=== PATIENT | female | born 1970 | race Caucasian/White ===

== ENCOUNTER → 2018-01-25 07:01 | Outpatient (CLI) | payer OTHER, SELFPAY ==
[2018-01-25 07:45] LABS: Free T3 2.7 pg/mL (2.18-3.98); T4 Free Direct 1.19 ng/dL (0.76-1.46); Thyroid Stim Hormone (TSH) 2.05 uIU/mL (0.358-3.74)
== END ==
PROVIDERS: Family Provider Family Medicine; PCP Family Medicine; Visit Provider Family Medicine
DX: E03.9 Hypothyroidism, unspecified (principal)
CPT/HCPCS: 36415; 84439; 84443; 84481

== ENCOUNTER → 2018-07-08 15:45 | Outpatient (CLI) | payer OTHER, SELFPAY | PROVIDERS: Family Provider Family Medicine; PCP Family Medicine; Referring Provider Otolaryngology Otolaryngology/Facial Plastic Surgery; Visit Provider Otolaryngology Otolaryngology/Facial Plastic Surgery | DX: J32.9 Chronic sinusitis, unspecified (principal) | CPT/HCPCS: 87070; 87205 ==

== ENCOUNTER → 2018-08-21 15:46 | Outpatient (CLI) | payer OTHER, SELFPAY ==
[2017-12-07 14:04] VITALS: BMI 28.9
--- NOTE | 2018-08-21 15:49 | BI_ITS ---
MAMMOGRAPHY - BILATERAL SCREENING REASON FOR EXAM: Female, 48 years old. Routine annual screening examination. PERTINENT HISTORY: Non-contributory. Remote right stereotactic breast biopsy. TECHNIQUE: Digital bilateral breast andreas (3D mammographic acquisition) in the CC and MLO projections. 2-D mediolateral oblique (MLO) and craniocaudad (CC) views of both breasts were obtained. CAD: Full Field Digital Mammography with Computer Added Detection was performed. COMPARISON: Comparison is made with prior study dated August 20, 2017 and June 08, 2016. FINDINGS: Breast Composition: The breasts are extremely dense, which lowers the sensitivity of mammography. There are no dominant masses or suspicious calcifications. A tissue clip marker is once again seen in the superior midportion of the right breast from prior biopsy. Stable appearance of the bilateral axillary lymph nodes. No other significant abnormalities are identified. There has been no significant change since the prior study. BI/SCREENING MAMM (CAD), BILAT IMPRESSION: Stable bilateral screening mammogram. Yearly follow-up mammogram recommended. (A) ASSESSMENT CATEGORY: BIRADS Category 2: Benign. A letter regarding these results will be sent to the patient by the facility within 30 days. Approximately 10% of breast cancers are not detected by mammography. A normal mammogram should not delay biopsy of a clinically suspicious abnormality. [id number] Electronically Signed: Trent Hernandez MD at 14:46 EST Tel [phone], Service support ,
== END ==
PROVIDERS: Family Provider Family Medicine; PCP Family Medicine; Visit Provider Obstetrics & Gynecology
DX: Z12.31 Encounter for screening mammogram for malignant neoplasm of breast (principal)
CPT/HCPCS: 77063; 77067

== ENCOUNTER → 2018-08-22 08:35 | Outpatient (CLI) | payer OTHER, SELFPAY ==
[2017-12-07 14:04] VITALS: BMI 28.9
[2018-08-22 10:23] LABS: T4 Free Direct 0.86 ng/dL (0.76-1.46)
[2018-08-22 10:50] LABS: T3 Total - Triiodothyronine 2.33 ng/mL (0.6-1.81)
[2018-08-23 12:53] LABS: Thyroid Peroxidase AB 11 IU/mL (0-34)
== END ==
PROVIDERS: Family Provider Family Medicine; PCP Family Medicine; Referring Provider Family Medicine; Visit Provider Family Medicine
DX: E03.9 Hypothyroidism, unspecified (principal); R00.2 Palpitations
CPT/HCPCS: 36415; 84439; 84443; 84480; 86376

== ENCOUNTER 2020-02-06 12:53 | Emergency (ER) | payer OTHER, SELFPAY ==
[2020-02-06 12:54] VITALS: BP 128/89; PULSE 111; RESP 20; TEMP 37.4; O2SAT 96; BMI 28.4
--- NOTE | 2020-02-06 13:39 | EKG12_ITS ---
Test Reason : Blood Pressure : / mmHG Vent. Rate : 083 BPM Atrial Rate : 083 BPM P-R Int : 136 ms QRS Dur : 074 ms QT Int : 356 ms P-R-T Axes : 042 -20 001 degrees QTc Int : 418 ms Normal sinus rhythm Cannot rule out Anterior infarct , age undetermined Abnormal ECG Confirmed by SHARITA MARQUEZ, GUI ([id number]), scientific publications editor KATHY TAYLOR ([id number]) on 02/09/2020 1:28:10 PM Referred By: ISI Confirmed By:GUI SHERIFF MD
[2020-02-06 14:12] LABS: Absolute Lymphocyte Count 2.09 X10^3/uL (0.83-4.51); Absolute Neutrophil Count 5.2 X10^3/uL (2.0-7.7); Basophil# 0.04 X10^3/uL; Basophil% 0.5 % (0-1); Eosinophil# 0.12 X10^3/uL; Eosinophils% 1.5 % (0-5); Hemoglobin 15.2 g/dL (12.0-15.0); Lymphocyte # 2.09 X10^3/ul (4.0); Lymphocyte % 25.4 % (19-41); Mean Corpuscular Hgb 29.8 pg (27.0-32.0); Mean Corpuscular Volume 90.2 fL (81-99); Mean Platelet Vol. 9.6 fl (6.2-12.0); Monocyte# 0.81 X10^3/uL; Monocyte% 9.8 % (0-10); NRBC Flagged by Analyzer 0 % (0-5); Neutrophil # 5.16 X10^3/uL (2.7-7.7); Neutrophil % 62.7 % (47-70); Platelet Count 301 K/mm3 (150-450); RBC Distribution Width CV 12.1 % (11.6-14.6); RBC Distribution Width SD 39.8 fl (35.1-43.9); White Blood Count 8.2 K/mm3 (4.4-11.0)
--- NOTE | 2020-02-06 14:16 | ED.VIS.GEN ---
History of Present Illness Chief Complaint: Back Informant: Patient Onset: Days Context: Gradual Onset Timing: Continuous Narrative: Patient is a 49-year-old female presented with back pain. She is also had fever in the evenings past few days. Patient has associated chills but denies any other symptoms such as cough, upper respiratory symptoms, urinary symptoms, abdominal pain, nausea or vomiting. She is alternating Tylenol Motrin for her symptoms. Her fevers been as high as 101. Patient states she has intermittent pain in a bandlike distribution over her mid back that is equal on both sides as well as a constant pain in her sacral area. She states is more like a pressure. She denies any perineal numbness, incontinence, leg weakness, paresthesias or rash. She denies any history of IV drug use or cancer. She denies any trauma or falls. She denies any other complaints at this time. Past Medical History - Allergies and Home Meds Allergies/Adverse Reactions: Allergies No Known Allergies Allergy (Verified 02/06/20 12:57) Primary Care Physician: Ellie James DO [Primary Care Provider] - Past Medical History: - - Asthma, thyroid dysfunction Surgical History: - - Partial thyroidectomy. section. Smoking Status: Never smoker - Family History Maternal Family History: Reports: Hypertension Paternal Family History: Reports: Diabetes, Heart Disease Review of Systems General: Reports: Chills, Fever. Denies: Sweats Eyes: Denies: Visual changes - bilaterally, Diplopia ENT: Denies: Rhinorrhea, Sore throat Cardiovascular: Denies: Chest pain, Palpitations Respiratory: Denies: Dyspnea, Cough, Dyspnea on exertion Gastrointestinal: Denies: Abdominal pain, Nausea, Vomiting, Diarrhea, Melena, Hematochezia Genitourinary: Denies: Dysuria, Hematuria, Frequency Musculoskeletal: Reports: Back pain. Denies: Myalgias, Swelling, Extremity Pain Skin: Denies: Rash, Wounds Neurological: Denies: Headache, Weakness, Numbness Physical Exam Vital Signs/Narrative: Vital Signs Temp Pulse Resp BP Pulse Ox 02/06/20 12:54 99.4 F H 111 H 20 H 128/89 H 96 Inital Vital Signs reviewed: Yes General: Well nourished, Well developed, No Acute Distress Head: Normocephalic, Atraumatic Eyes: Perrl, EOMI ENT: Moist mucous membranes, No rhinorrhea Neck: Supple, Nontender Cardiovascular: Regular rhythm, No murmurs, Tachycardia Respiratory: No distress, CTA bilaterally, Chest nontender Abdomen: Soft, Nontender, Nondistended, Normal bowel sounds. Negative for: Guarding, Rebound tenderness Back: Nontender, Normal Inspection, - - No palpable tenderness. No step-off sign. Patient's area of tenderness is diffusely over the sacral area as well as bandlike distribution of discomfort thoracolumbar junction with no pinpoint midline tenderness. Pain is not reproducible with palpation.. Negative for: CVA tenderness, Spinal tenderness Extremities: Nontender, No edema Skin: Normal color, No rash Neurological: Alert, Oriented x3, Cranial nerves II-XII grossly intact, Normal Strength, Normal Sensation, Normal Gait. Negative for: Parasthesia, Weakness Psychological: Normal affect, Normal Mood Diagnostic/Tx/Re-eval Chest X-Ray - ED: 1 View Clinical Impression(s) from Imaging Studies Chest X-Ray 02/06/20 14:30 IMPRESSION: Normal x-ray examination of the chest. Electronically Signed: Trent Mary, at 14:56 EDT , Service support , Laboratory Data 02/06/20 02/06/20 02/06/20 13:55 14:00 14:00 WBC 8.2 RBC 5.10 Hgb 15.2 H Hct 46.0 MCV 90.2 MCH 29.8 MCHC 33.0 RDW Std Deviation 39.8 RDW Coeff of Felicitas 12.1 Plt Count 301 MPV 9.6 Immature Gran % (Auto) 0.100 Neut % (Auto) 62.7 Lymph % (Auto) 25.4 [place] % (Auto) 9.8 Eos % (Auto) 1.5 Baso % (Auto) 0.5 Absolute Neuts (auto) 5.2 Absolute Lymphs (auto) 2.09 Nucleated RBC % 0 PT INR APTT Sodium 138 Potassium 3.6 Chloride 105 Carbon Dioxide 29.0 Anion Gap 4 L BUN 15 Creatinine 0.76 Estim Creat Clear Calc 65.73 Est GFR (MDRD) Af Amer 104 Est GFR (MDRD) Non-Af 86 BUN/Creatinine Ratio 19.7 Glucose 95 Lactic Acid Calcium 9.2 Total Bilirubin 0.30 AST 13 L ALT 36 Alkaline Phosphatase 81 Total Creatine Kinase 93 Total Protein 8.4 H Albumin 4.3 Globulin 4.1 Albumin/Globulin Ratio 1.0 Urine Color Urine Clarity Urine pH Ur Specific [place] Urine Protein Urine Glucose (UA) Urine Ketones Urine Occult Blood Urine Nitrite Urine Bilirubin Urine Urobilinogen Ur Leukocyte Esterase Urine RBC Urine WBC Ur Squamous Epith Cells Urine Bacteria Urine Mucus COVID-19 (LAURI) Negative 02/06/20 02/06/20 02/06/20 14:00 14:00 14:20 WBC RBC Hgb Hct MCV MCH MCHC RDW Std Deviation RDW Coeff of Felicitas Plt Count MPV Immature Gran % (Auto) Neut % (Auto) Lymph % (Auto) [place] % (Auto) Eos % (Auto) Baso % (Auto) Absolute Neuts (auto) Absolute Lymphs (auto) Nucleated RBC % PT 12.2 INR 1.0 APTT 29.7 Sodium Potassium Chloride Carbon Dioxide Anion Gap BUN Creatinine Estim Creat Clear Calc Est GFR (MDRD) Af Amer Est GFR (MDRD) Non-Af BUN/Creatinine Ratio Glucose Lactic Acid 0.9 Calcium Total Bilirubin AST ALT Alkaline Phosphatase Total Creatine Kinase Total Protein Albumin Globulin Albumin/Globulin Ratio Urine Color Yellow Urine Clarity Clear Urine pH 7.0 Ur Specific [place] 1.010 Urine Protein Negative Urine Glucose (UA) Normal Urine Ketones Negative Urine Occult Blood 10 H Urine Nitrite Negative Urine Bilirubin Negative Urine Urobilinogen Normal Ur Leukocyte Esterase Negative Urine RBC 0 SEEN Urine WBC 0 SEEN Ur Squamous Epith Cells 0 SEEN Urine Bacteria 0 SEEN Urine Mucus 0 SEEN COVID-19 (LAURI) - Rhythm Strip Rhythm Strip: Sinus Rhythm Rate: 83 Ectopy: None - EKG Initial EKG Interpretation: Sinus Rhythm, - - Normal sinus rhythm at a rate of 83 Normal axis Normal intervals Normal ST segments - Medical Decision Making Patient is evaluated for back pain and fever. She appears nontoxic in no acute distress. Vital signs are significant for mild tachycardia and low-grade temperature. She is well-appearing. Her back pain is not reproducible with palpation. She is not have any overlying abscesses or skin changes. She is a normal neurologic exam and she has no risk factors for cauda equina syndrome or epidural abscess. I am not sure if the back pain and the fever are related. Because her fever is not clear. Work-up including chest x-ray, UA, CBC and CMP are all unremarkable. 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 She not had any known contact with coronavirus patient however.Lactate is normal. Blood cultures are pending. I did have a discussion with the patient about the possibility of cauda equina syndrome in the differential given her back pain and fever. Given that she does not have any risk factors, neurologic symptoms or incontinence I do think it is very unlikely. Patient is comfortable with deferring emergent MRI at this time and return the emergency room should she develop worsening symptoms. Patient be placed on a muscle relaxer to see if this helps with her back pain. She declines anything stronger than Tylenol for her pain while in the emergency room. She is very well-appearing and I feel a good candidate for outpatient follow-up. There is no obvious cause of her symptoms/fever and I do not think empiric antibiotics indicated at this time. Patient is counseled on signs and symptoms requiring return to the emergency room. Patient verbalizes agreement and understand this plan. Patient discharged home in stable and improved condition. ED Disposition - Plan for ED Patient: Disposition: Home or Assisted Living Diagnosis: Fever of unknown origin, Suspected COVID-19 virus infection, Back pain Instructions: ED Back Pain Acute or Chronic, ED FUO Adult Prescriptions: cycloBENZAPRine HCl [Flexeril] 10 mg PO TID PRN #20 tab PRN Reason: Muscle Spasm Prescription Printed Referrals: Ellie James DO [Primary Care Provider] - Additional Instructions: The exact cause of your fevers is not clear. Your coronavirus test is still pending. Your blood work came back normal. Your blood cultures are pending. I am not sure if the back pain is related to the cause of your fevers. If you develop any leg weakness, numbness or incontinence please return back to the emergency room immediately. Continue to alternate Tylenol and ibuprofen. Please do not go out in public or back to work until your coronavirus test results.
[2020-02-06 14:22] LABS: Partial Thromboplast Time 29.7 Seconds (24.1-36.2); Prothrombin Time (Protime)PT. 12.2 SECONDS (11.7-14.9)
[2020-02-06 14:26] VITALS: BP 104/94; PULSE 101; RESP 22; O2SAT 96
[2020-02-06 14:29] LABS: Bacteria 0 SEEN /hpf (None Seen); Mucous, Urine 0 SEEN /hpf (<or=2+); Red Blood Cells-Urine 0 SEEN /hpf (0-5); Squamous Epithelial Cells - UA 0 SEEN /hpf (5-10); White Blood Cells 0 SEEN /hpf (0-5)
--- NOTE | 2020-02-06 14:30 | RAD_ITS ---
STUDY: X-RAY CHEST REASON FOR EXAM: Female, 49 years old. INTERMITTENT FEVERS FOR PAST 4 DAYS AND BACK PAIN TECHNIQUE: Single AP portable view of the chest. COMPARISON: Comparison is made with prior study dated May 04, 2015. FINDINGS: EKG electrodes are seen. The lungs are clear and expanded. There is no demonstrated pleural abnormality. Normal size heart. Normal mediastinum and hadley. Normal visualized pulmonary arteries. Normal visualized aortic arch and descending thoracic aorta. Normal visualized thoracic spine. Normal visualized ribs, clavicles, and shoulders. There is no demonstrated abnormality of the visualized soft tissue structures of the upper abdomen. RAD/Chest 1 View (Portable) IMPRESSION: Normal x-ray examination of the chest. Electronically Signed: Trent Hernandez, at 14:56 EDT , Service support ,
[2020-02-06 14:37] LABS: Lactic Acid 0.9 mmol/L (0.4-1.9)
[2020-02-06 14:37] LABS: Color, Urine Yellow (Yellow); Glucose, Dipstick Normal (Normal); Ketone-Dipstick Negative (Negative); Leukocyte Esterase-Dipstick Negative /ul (Negative); Nitrite-Dipstick Negative (Negative); Occult Blood-Urine 10 /ul (Negative); Protein-Dipstick Negative (Negative); Urine Bilirubin Dipstick Negative (Negative); Urine Clarity Clear (Clear); Urine Urobilinogen Normal (Normal)
[2020-02-06 14:39] LABS: AST(SGOT) 13 U/L (15-37); Alanine Aminotransfer ALT/SGPT 36 U/L (13-56); Albumin, Serum 4.3 g/dL (3.2-5.0); Alkaline Phosphatase 81 U/L (45-117); Anion Gap 4 (5-15); BUN 15 mg/dL (7-18); BUN/Creat Ratio 19.7 RATIO (10-20); CPK Total, Creatine Kinase 93 U/L (26-192); Calcium,Total 9.2 mg/dL (8.5-10.1); Chloride 105 mmol/L (98-107); Creatinine, Serum 0.76 mg/dL (0.55-1.02); EST Glomerular Filtration Rate 86 mL/min (>60); Est Glom Filt Rate - Afr Amer 104 mL/min (>60); Estimated Creatinine Clearance 65.73 ml/min; Globulin 4.1 g/dL (2.2-4.2); Glucose 95 mg/dL (74-106); Potassium 3.6 mmol/L (3.5-5.1); Protein, Total 8.4 g/dL (6.4-8.2); Sodium Level 138 mmol/L (136-145)
[2020-02-06 15:11] LABS: Probe Check PASS; Specimen Processing Control PASS
[2020-02-06] MEDS: Acetaminophen 500 MG Tablet 1000 MG PO (15:24)
[2020-02-06 16:39] VITALS: BP 124/81; PULSE 96; RESP 18
== END 2020-02-06 16:41 | disposition home or self-care (01) ==
PROVIDERS: Emergency Provider Emergency Medicine; PCP Family Medicine
DX: M54.5 Low back pain (principal); R50.9 Fever, unspecified; J45.909 Unspecified asthma, uncomplicated
CPT/HCPCS: 71045; 80053; 81001; 82550; 83605; 85025; 85610; 85730; 87040; 87086; 87635; 93005; 99284; G2023; A4216; U0003

== ENCOUNTER → 2020-02-09 11:05 | Outpatient (CLI) | payer OTHER, SELFPAY ==
[2020-02-06 12:54] VITALS: BMI 28.4
--- NOTE | 2020-02-09 11:32 | RAD_ITS ---
STUDY: X-RAY - LUMBOSACRAL SPINE REASON FOR EXAM: Female, 49 years old. Low back pain x1 week, getting worse TECHNIQUE: 7 view(s) of the lumbosacral spine were obtained. COMPARISON: None FINDINGS: Normal lumbar lordosis. There is no substantial scoliosis. There is normal alignment of the vertebrae. Normal vertebral bodies and endplates. Normal disc space heights. Normal bilateral sacral ala, sacroiliac joints, and visualized sacrum. Normal visualized soft tissue structures. No instability noted on the flexion or extension views. However, range of motion is limited RAD/L/S Spine Comp/w Bending Views IMPRESSION: Normal x-ray examination of the lumbosacral spine. Electronically Signed: Alexis Nunez MD at 19:31 EDT , Service support ,
--- NOTE | 2020-02-09 11:32 | RAD_ITS ---
STUDY: X-RAY - SACRUM/COCCYX REASON FOR EXAM: Female, 49 years old. Acute low back pain TECHNIQUE: 3 view(s) of the sacrum and coccyx were obtained. COMPARISON: None. FINDINGS: Normal bilateral sacroiliac joints. Normal visualized sacral ala and fused sacral bodies. Normal sacrococcygeal junction with a normal angulation. Normal coccygeal segments. The presacral soft tissue structures are unremarkable. RAD/Sacrum-Coccyx min 2 Views IMPRESSION: Normal x-rays of the sacrum and coccyx. Electronically Signed: Alexis Nunez MD at 19:29 EDT , Service support ,
== END ==
PROVIDERS: PCP Family Medicine; Referring Provider Family Medicine; Visit Provider Family Medicine
DX: M54.9 Dorsalgia, unspecified (principal); M53.3 Sacrococcygeal disorders, not elsewhere classified
CPT/HCPCS: 72114; 72220

== ENCOUNTER → 2020-06-30 15:28 | Outpatient (CLI) | payer OTHER, SELFPAY ==
--- NOTE | 2020-06-30 15:32 | BI_ITS ---
MAMMOGRAPHY - BILATERAL SCREENING REASON FOR EXAM: Female, 49 years old. Routine annual screening examination. PERTINENT HISTORY: Non-contributory. Prior right stereotactic breast biopsy. TECHNIQUE: Digital bilateral breast alissa (3D mammographic acquisition) in the CC and MLO projections. 2-D mediolateral oblique (MLO) and craniocaudad (CC) views of both breasts were obtained. CAD: Full Field Digital Mammography with Computer Added Detection was performed. COMPARISON: Comparison is made with prior study dated 08/21/2018 and 08/20/2017. FINDINGS: Breast Composition: The breasts are extremely dense, which lowers the sensitivity of mammography. There are no dominant masses or suspicious calcifications. A tissue clip marker is once again seen in the upper midportion of the right breast. Stable appearance of the small benign appearing axillary lymph nodes. No other significant abnormalities are identified. There has been no significant change since the prior study. BI/SCREEN MAMM (CAD) W/ALISSA BILAT IMPRESSION: Stable bilateral screening mammogram. Yearly follow-up mammogram recommended. (A) ASSESSMENT CATEGORY: BIRADS Category 2: Benign. A letter regarding these results will be sent to the patient by the facility within 30 days. Approximately 10% of breast cancers are not detected by mammography. A normal mammogram should not delay biopsy of a clinically suspicious abnormality. [id number] Electronically Signed: Trent Hernandez, at 9:21 EDT , Service support ,
== END ==
PROVIDERS: PCP Family Medicine; Referring Provider Obstetrics & Gynecology; Visit Provider Obstetrics & Gynecology
DX: Z12.31 Encounter for screening mammogram for malignant neoplasm of breast (principal)
CPT/HCPCS: 77063; 77067

== ENCOUNTER → 2021-03-10 10:24 | Outpatient (CLI) | payer OTHER, SELFPAY ==
--- NOTE | 2021-03-10 10:35 | RAD_ITS ---
STUDY: X-RAY CHEST REASON FOR EXAM: Female, 50 years old. 3 week history of dyspnea and cough. Asthma. TECHNIQUE: PA and lateral views of the chest. COMPARISON: Comparison is made with prior study dated 02/06/2020. FINDINGS: The lungs are clear and expanded. There is no demonstrated pleural abnormality. Normal size heart. Normal mediastinum and hadley. Normal visualized pulmonary arteries. Normal visualized aortic arch and descending thoracic aorta. Normal visualized thoracic spine. Normal visualized ribs, clavicles, and shoulders. There is no demonstrated abnormality of the visualized soft tissue structures of the upper abdomen. RAD/Chest PA and Lateral IMPRESSION: Normal x-ray examination of the chest. Electronically Signed: Trent Hernandez MD at 10:54 EDT , Service support ,
== END ==
PROVIDERS: PCP Family Medicine; Referring Provider Family Medicine; Visit Provider Family Medicine
DX: R05 Cough (principal)
CPT/HCPCS: 71046

== ENCOUNTER → 2021-07-02 08:12 | Outpatient (CLI) | payer OTHER, SELFPAY ==
[2021-07-02 08:19] LABS: Absolute Lymphocyte Count 2.21 X10^3/uL (0.83-4.51); Absolute Neutrophil Count 4.5 X10^3/uL (2.0-7.7); Basophil# 0.05 X10^3/uL; Basophil% 0.7 % (0-1); Eosinophil# 0.12 X10^3/uL; Eosinophils% 1.6 % (0-5); Hematocrit 45.5 % (37-47); Hemoglobin 14.3 g/dL (12.0-15.0); Lymphocyte # 2.21 X10^3/ul; Lymphocyte % 29.2 % (19-41); Mean Corp Hgb Conc 31.4 g/dL (32-36); Mean Corpuscular Hgb 28.4 pg (27.0-32.0); Mean Corpuscular Volume 90.5 fL (81-99); Mean Platelet Vol. 9.9 fl (6.2-12.0); Monocyte# 0.62 X10^3/uL; Monocyte% 8.2 % (0-10); NRBC Flagged by Analyzer 0 % (0-5); Neutrophil # 4.53 X10^3/uL (2.7-7.7); Neutrophil % 59.9 % (47-70); Platelet Count 311 K/mm3 (150-450); RBC Distribution Width CV 12.2 % (11.6-14.6); RBC Distribution Width SD 40.2 fl (35.1-43.9); Red Blood Count 5.03 M/mm3 (4.2-5.4); White Blood Count 7.6 K/mm3 (4.4-11.0)
[2021-07-02 08:52] LABS: ALB/GLOB Ratio 0.9 RATIO (0.9-2.4); AST(SGOT) 18 U/L (15-37); Alanine Aminotransfer ALT/SGPT 30 U/L (13-56); Albumin, Serum 3.7 g/dL (3.2-5.0); Alkaline Phosphatase 74 U/L (45-117); Anion Gap 10 (5-15); BUN 9 mg/dL (7-18); BUN/Creat Ratio 15.2 RATIO (10-20); Bilirubin, Direct 0.12 mg/dL (0.00-0.30); Calcium,Total 9.2 mg/dL (8.5-10.1); Chloride 101 mmol/L (98-107); Cholesterol 178 mg/dL (200); Creatinine, Serum 0.59 mg/dL (0.55-1.02); EST Glomerular Filtration Rate 115 mL/min (>60); Est Glom Filt Rate - Afr Amer 139 mL/min (>60); Globulin 3.9 g/dL (2.2-4.2); Glucose 101 mg/dL (74-106); High Density Lipoprotein 51 mg/dL; LDH 156 U/L (84-246); Phosphorus 3.6 mg/dL (2.5-4.9); Potassium 4.4 mmol/L (3.5-5.1); Protein, Total 7.6 g/dL (6.4-8.2); Sodium Level 138 mmol/L (136-145); Triglycerides 105 mg/dL; Uric Acid 3.1 mg/dL (2.6-6.0); Very Low Density Lipoprotein 21 mg/dL (5-40)
[2021-07-02 09:12] LABS: Color, Urine Yellow (Yellow); Glucose, Dipstick Normal (Normal); Ketone-Dipstick Negative (Negative); Leukocyte Esterase-Dipstick Negative /ul (Negative); Nitrite-Dipstick Negative (Negative); Occult Blood-Urine Negative /ul (Negative); Protein-Dipstick Negative (Negative); Urine Bilirubin Dipstick Negative (Negative); Urine Clarity Clear (Clear); Urine Urobilinogen Normal (Normal)
== END ==
PROVIDERS: PCP Family Medicine; Visit Provider Family Medicine
DX: Z02.1 Encounter for pre-employment examination (principal)

== ENCOUNTER → 2021-07-02 08:18 | Outpatient (CLI) | payer OTHER, SELFPAY ==
[2021-07-02 09:10] LABS: Free T3 3.2 pg/mL (2.18-3.98); T4 Free Direct 0.89 ng/dL (0.76-1.46); Thyroid Stim Hormone (TSH) 1.26 uIU/mL (0.358-3.74)
== END ==
PROVIDERS: PCP Family Medicine; Visit Provider Family Medicine
DX: E03.9 Hypothyroidism, unspecified (principal)
CPT/HCPCS: 84439; 84443; 84481

== ENCOUNTER 2021-09-30 15:38 | Outpatient (CLI) | payer OTHER, SELFPAY ==
--- NOTE | 2021-09-30 15:45 | RAD_ITS ---
STUDY: X-RAY - CERVICAL SPINE REASON FOR EXAM: Female, 51 years old. Headache and neck pain TECHNIQUE: 5 view(s) of the cervical spine were obtained. COMPARISON: None FINDINGS: Normal anterior atlantoaxial articulation. Normal odontoid process. There is straightening of the normal cervical lordosis. There is multi-level endplate spondylosis. There is multi-level degenerative disc disease with multilevel disc space narrowing. There is multi-level osseous foraminal stenosis. The soft tissue structures are unremarkable. RAD/Cerv Spine 4 or 5 Views IMPRESSION: Multilevel degenerative changes, no acute findings Electronically Signed: Alexis Nunez MD at 8:11 EST ,
== END 2021-09-30 23:59 | disposition short-term general hospital (02) ==
LOC: RAD 15:41
PROVIDERS: PCP Family Medicine; Referring Provider Family Medicine; Visit Provider Family Medicine
DX: M54.12 Radiculopathy, cervical region (principal)
CPT/HCPCS: 72050

== ENCOUNTER 2021-11-28 12:35 | Outpatient (CLI) | payer OTHER, SELFPAY ==
--- NOTE | 2021-11-28 13:06 | MRI_ITS ---
STUDY: MRI CERVICAL SPINE WITHOUT CONTRAST REASON FOR EXAM: Female, 51 years old. DEGENERATIVE DISC DISEASE, RADICULOPATHY TECHNIQUE: Standardized fat and water weighted pulse sequences were obtained in the sagittal and axial planes. COMPARISON: X-ray of the cervical spine dated September 30, 2021 FINDINGS: Normal foramen magnum and brainstem-cervical cord junction. Normal craniovertebral junction. Normal anterior atlantoaxial articulation. Normal odontoid process. There is straightening of the normal cervical lordosis. C2-3: Normal endplates. Diffuse disc desiccation. Normal disc height and morphology. Normal central canal and intervertebral neural foramina. C3-4: Moderate disc space narrowing with diffuse disc bulging contributing to mild central canal stenosis and mass effect on the anterior aspect of the cord. Normal right neural foramen. Mild left foraminal stenosis is present due to uncovertebral and facet joint hypertrophy. Slight retrolisthesis of C3 on C4 of 2 mm. C4-5: Moderate disc space narrowing with a diffuse disc spur complex resulting in mild central canal stenosis and mass effect on the anterior aspect of the cord. Normal bilateral intervertebral neural foramina. C5-6: Moderate disc space narrowing with a diffuse disc spur complex resulting in compression anterior aspect of the cord and mild to moderate central canal stenosis. Mild to moderate bilateral foraminal stenosis is also present without nerve root compression. C6-7: Mild to moderate disc space narrowing with a diffuse disc spur complex, resulting in compression on anterior aspect of the cord and mild to moderate central canal stenosis. Normal bilateral intervertebral neural foramina. C7-T1: Normal endplates. Diffuse disc desiccation. Normal disc height and morphology. Normal central canal and intervertebral neural foramina. Normal cervical cord. There is no demonstrated cervical cord syrinx cavity. Normal visualized soft tissue structures. MRI/Spine Cervical (Routine) IMPRESSION: 1. Multilevel degenerative changes, as described above. 2. Mild to moderate central canal stenosis with mass effect or direct compression on anterior aspect of the cord from C3-C4 down to C6-C7. Electronically Signed: Jose Kennedy MD at 9:46 EDT ,
== END 2021-11-28 23:59 | disposition home or self-care (01) ==
LOC: MRI 12:36
PROVIDERS: PCP Family Medicine; Visit Provider Family Medicine
DX: M50.10 Cervical disc disorder with radiculopathy, unspecified cervical region (principal)
CPT/HCPCS: 72141

== ENCOUNTER 2021-12-05 16:30 | Outpatient (RCR) | payer OTHER, SELFPAY ==
--- NOTE | 2021-10-03 17:39 | HP.PTEVAL_ITS ---
Patient's Visit Information JASON GARCIA is a 51 year old F referred to Physical Therapy by Dr. Ellie James DO with a diagnosis of CERVICAL RADICULOPATHY. Date of Evaluation: 10/03/21 Physical Therapist: Flor Paz PT, Cert MDT - Visit Plan Frequency: 2-3x /Week Duration: 4-6 Weeks Plan: CONSIDER MANUAL TX AND IF APPROPRIATE MECHANICAL TX AFTER MANUAL TRIAL. TRY US AND/OR E-STIM WITH MH. POSTURE CORRECTION/STRENGTHENING, INSTRUCTION IN APPROPRIATE BODY MECHANICS AND ACTIVITY MODIFICATIONS. LIZETH UE ROM, STRETCHING AND STRENGTHENING. HEP INSTRUCTION. - Subjective Diagnosis: CERVICAL RADICULOPATHY. 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 Disability: NO. Present symptoms: NECK PAIN/ACHY. NO L UE SX'S. RIGHT ARM, FOREARM, HAND AND FINGER PAIN, NUMBNESS AND TINGLING. RIGHT UE SX'S ARE INTERMITTENT AND USUALLY BRIEF BUT NECK ACHE IS MORE CONSTANT. RIGHT UE DOMINANT AND FEELS RIGHT ARM IS WEAK. Present since: APRIL 2021 NOTICED RIGHT UE WEAKNESS MOVING DAUGHTER INTO [place] AND WAS DROPPING THINGS. REPORTS SHE RELATED IT TO GETTING COVID SHOT AND REPORTS HAVING A LOT OF SWELLING WITH THE COVID SHOT. REPORTS HER ARM GOT REALLY HUGE AFTER EACH (2) COVID SHOT. GOT BOOSTER IN L ARM AND IT SWELLED TOO BUT NOT BAD. Pain Scale: Worst - 6/10 Least - 0/10. Currently: 0/10. Commenced as a result of: NO APPARENT REASON. Symptoms at onset: RIGHT THUMB PAIN DRIVING. Worse: LIFTING RIGHT HAND OVER-HEAD RIGHT ARM INSTANTLY GOES NUMB, SOMETIMES SITTING, HAPPENS A LOT WHEN LYING IN BED. CAN'T LIE ON RIGHT SIDE. DRIVING. VORTEXING AT WORK WITH RIGHT UE SO USES LEFT. Better: STOPPING AGGREVATING ACTIVITY. AT NIGHT HEAT FEELS GOOD ON RIGHT ARM AND NECK. TAKING ALEVE BEFORE BED. Disturbed sleep: YES. Previous history/Previous treatment: DX'D WITH MILD SCOLIOSIS A CHILD. WHEN ABOUT 29 YEARS OLD WOKE UP WITH RIGHT ARM COMPLETELY NUMB AND COULDN'T MOVE IT. STATES AT THAT TIME HER SPINE WAS IN A C FORMATION AND GOT BETTER AFTER SEEING CHIROPRACTOR FOR ABOUT A MONTH. REPORTS THAT IS THE ONLY HISTORY OF NECK OR ARM SX'S BEFORE THIS EPISODE. Dizziness: INTERMITTENT BUT CHRONIC. Tinnitis: YES - INTERMITTENT AND NOT NEW. Nausea: YES WITH PAIN BUT PASSES WHEN PAIN GOES AWAY. STATES SHE GETS NAUSEOUS WITH ANY PAIN NOT JUST THIS PAIN. Shortness of Breath: NO. Difficulty Swollowing: NO. Gait: NORMAL. Accidents: NO. Unexplained weight loss: NO. Imaging: RECENT NECK X-RAY SUNDAY AT [facility]: RESULTS NOT AVAILABLE YET. PMH/Recent major surgery: THYROIDECTOMY RIGHT 2014, ASTHMA, PANCREATIC DIVISION - ASSYMPTOMATIC, H/O KIDNEY STONE. - Objective Sitting Posture/Standing Posture: POOR. FH. RS'S. POSSIBLE SCOLIOSIS. Active Correction of posture: BETTER. ABLE TO REPRODUCE SX'S IN SLOUCHING AND ABOLISH WITH POSTURE CORRECTION. Other Observations: INDEP GAIT AND TRANSFERS. Motor deficit: CAPTAIN CANNERY TENDER STRENGTH: 25 LBS RIGHT AND 45 LBS LEFT (PATIENT IS RIGHT HAND DOMINANT). LEFT UE 5/5 EXCEPT SHLD GRADED 4/5. RIGHT SHLD 4-/5, ELBOW 4/5. Sensory deficit: LIZETH UE LIGHT TOUCH SENSATION GROSSLY INTACT AND SYMMETRICAL. ROM deficit: LIZETH UE ROM WFL ALL PLANES BUT KEEPING RIGHT UE ELEVATED OVER-HEAD FOR ABOUT 10 SEC PROVOKES RIGHT UE TINGLING IN ENTIRE RIGHT UE. SUBSIDES QUICKLY UPON LOWERING. Reflexes: 2/3 LIZETH UE'S. Dural Signs: POSITIVE RIGHT UE. Cervical Mvmt Loss: Flex: NIL. Pro: NIL. Ext: MIN. Ret: MIN. RSB: MIN. LSB: MIN. R Rot: MIN. L Rot: NIL. PATIENT DENIES INCREASED NECK OR RIGHT UE SX'S WITH CERVICAL ROM TESTING ALL PLANES. Postural strength: POOR. Palpation: NO ACUTE TENDERNESS WITH PALPATION OF LIZETH SHLD'S, UPPER THORACIC SPINE, CERVICAL SPINE OR OCCIPUT. OTHER: SEATED CERVICAL DISTRACTION TESTING - NE. TREATMENT: NEUROMUSCULAR REEDUCATION - RETRAINING OF MVMT AND POSTURE FOR SITTING, LYING AND STANDING ACTIVITIES. - Balance/Special Test Scores Oswestry Neck Score: 9 - Goals Goal 1:: DECREASE C/O NECK AND RIGHT UE SX'S. Goal Time Frame: 4-6 Weeks Goal 2:: IMPROVE PERSONAL CARE, LIFTING, READING, SLEEP AND WORK FUNCTION. Goal Time Frame: 4-6 Weeks Goal 3:: INSTRUCT IN PROPHYLAXIS - Anticipated Interventions Patient/Client Instruction: Educate patient on: Condition, Plan of Care, Risk Factors For the Purpose of:: To improve self management Therapeutic Exercise to Include: Strength training, Body mechanics, Postural training, Flexibilty training, Neuromotor development, Scapular Strength/Stabilization For the Purpose of:: To decrease pain, To increase ROM, To improve muscle performance and motor function, To increase tolerance to activity/condition/position, To improve ability of physical actions for home/community/work/leisure TENS: Yes IF ES: Yes Cryotherapy (ice pack, ice massage): Yes Thermo therapy (hot pack): Yes Ultrasound (thermal/non thermal): Yes Intermittent cervical traction: Yes For the Purpose of:: To decrease pain, To improve nutrient delivery to tissue Thank you for the opportunity to evaluate your patient. For Medicare and Medicare HMO plans, please review the plan of care and approve it. It will need to be FAXED BACK to us at [phone] for Medicare purposes. For Medicare only, by signing this I certify the plan of care. Please let me know if there are questions or concerns regarding this plan of care. Physician Signature: Date:
--- NOTE | 2021-10-28 16:12 | HP.PTREVAL ---
Dr. Ellie James, DO, It has been my pleasure to treat JASON GARCIA over the last 11 visits for CERVICAL RADICULOPATHY. Please see the progress note below for an update on the physical therapy plan of care! Subjective: PATIENT REPORTS THE PAIN IN HER BICEP IS COMPLETELY GONE BUT HER WHOLE ARM STILL GOES COMPLETELY NUMB. IT HAS HAPPENDED ABOUT 4 TIMES TODAY AT WORK. THE SX'S ARE BRIEF AND MUCH LESS OFTEN OVER-ALL. I FEEL LIKE THE THERAPY IS DEFINATELY HELPING BUT CONCERNED BECAUSE IT IS NOT GONE. NO LONGER GETTING THUMB PAIN DRIVING. PATIENT REPORTS SHE WANTS TO CONTINUE PT BASED ON HER ARM FEELING STRONGER AND HAVING LESS PAIN BUT SHE ALSO WANTS TO DISCUSS GETTING AN MRI WITH HER DOCTOR. Objective/Function: PATIENT WAS SEEN TODAY FOR RE-ASSESSMENT OF PROGRESS TOWARD THE SET PT GOALS AND THE NEED FOR FURTHER PHYSICAL THERAPY VS READINESS FOR DISCHARGE. PATIENT HAS BEEN RESPONDING WELL TO TRACTION AND THER EX BUT STILL HAS SIGNIFICANT RIGHT UE SX'S. SHE IS A GOOD CANDIDATE TO CONTINUE PHYSICAL THERPAY BASED ON PROGRESS MADE AND ROOM FOR FURTHER IMPROVEMENT. UPON EXAM TODAY: Motor deficit: ECHO TECHNICIAN STRENGTH: 40 LBS RIGHT COMPARED TO 25 LBS AT INITIAL EVAL. LIZETH UE'S 5/5 EXCEPT SHLDS GRADED 4/5. Sensory deficit: LIZETH UE LIGHT TOUCH SENSATION GROSSLY INTACT AND SYMMETRICAL. ROM deficit: LIZEHT UE ROM WFL ALL PLANES BUT KEEPING RIGHT UE ELEVATED OVER-HEAD FOR ABOUT 10 SEC STILL PROVOKES RIGHT UE TINGLING IN ENTIRE RIGHT UE. SUBSIDES QUICKLY UPON LOWERING. Reflexes: 2/3 LIZETH UE'S. Dural Signs: POSITIVE RIGHT UE. Cervical Mvmt Loss: Flex: NIL. Pro: NIL. Ext: MIN. Ret: MIN. RSB: NIL. LSB: NIL. R Rot: NIL. L Rot: NIL. PATIENT DENIES INCREASED NECK OR RIGHT UE SX'S WITH CERVICAL ROM TESTING ALL PLANES. Plan Plan: CONT PER POC DECEASING TO 2X'S/WK: CONSIDER MANUAL TX AND IF APPROPRIATE MECHANICAL TX AFTER MANUAL TRIAL. TRY US AND/OR E-STIM WITH MH. POSTURE CORRECTION/STRENGTHENING, INSTRUCTION IN APPROPRIATE BODY MECHANICS AND ACTIVITY MODIFICATIONS. LIZETH UE ROM, STRETCHING AND STRENGTHENING. HEP INSTRUCTION. Balance/Gait/Functional tests - Balance/Special Test Scores Oswestry Neck Score: 6 Goals Goal 1:: DECREASE C/O NECK AND RIGHT UE SX'S. Goal Time Frame: 4-6 Weeks Goal Progress: Progressing Goal 2:: IMPROVE PERSONAL CARE, LIFTING, READING, SLEEP AND WORK FUNCTION. Goal Time Frame: 4-6 Weeks Goal Progress: Progressing Goal 3:: INSTRUCT IN PROPHYLAXIS Goal Progress: Progressing Anticipated Interventions Patient/Client Instruction: Educate patient on: Condition, Plan of Care, Risk Factors For the Purpose of:: To improve self management Therapeutic Exercise to Include: Strength training, Body mechanics, Postural training, Flexibilty training, Neuromotor development, Scapular Strength/Stabilization For the Purpose of:: To decrease pain, To increase ROM, To improve muscle performance and motor function, To increase tolerance to activity/condition/position, To improve ability of physical actions for home/community/work/leisure TENS: Yes IF ES: Yes Cryotherapy (ice pack, ice massage): Yes Thermo therapy (hot pack): Yes Ultrasound (thermal/non thermal): Yes Intermittent cervical traction: Yes For the Purpose of:: To decrease pain, To improve nutrient delivery to tissue Please do not hesitate to contact me at [phone] by phone or if you have questions or concerns regarding this new plan of care! Sincerely, Flor Paz PT, Cert MDT
--- NOTE | 2021-12-05 17:33 | HP.PTDCSUM ---
It has been my pleasure to treat JASON GARCIA referred by Dr. Ellie James DO, with the diagnosis of CERVICAL RADICULOPATHY for a total of 18 visit(s). Discharge Date: 12/05/21 Please see the following information for a summary of their discharge status. Subjective: BETTER. 99% BETTER. DOING HOME EX'S RELIGOUSLY. HAD MRI A WEEK AGO BUT HAS NOT RECEIVED THE RESULTS YET FROM THE DOCTOR BUT LOOKED THEM UP ON HER OWN. HELPED DAUGHTER MOVE AND THEN HAD A BRIEF EPISODE R UE NUMBNESS WHEN SHE ROLLED OVER THAT NIGHT BUT WENT AWAY IMMEDIATELY WHEN SHE MOVED. R shldr blade Pain Intensity (Out of 10): 0 % Improvement: 75 Objective/Function: SEE MRI RESULTS IN [facility] EMR. PATIENT WAS SEEN TODAY FOR RE-ASSESSMENT OF PROGRESS TOWARD THE SET PT GOALS AND THE NEED FOR FURTHER PHYSICAL THERAPY VS READINESS FOR DISCHARGE. PATIENT IS INDEP WITH A HEP AND REPORTING BEING 99% SYMPTOM FREE FOR ABOUT 2 WEEKS NOW WITH FULL OR NEAR FULL ACTIVITY. SHE HAS POSITIVE MRI FINDINGS THAT SHE PLANS TO FOLLOW UP WITH HER PCP ABOUT. 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 LIZETH UE ROM AND STRENGTH IS WFL AND PATIENT DENIES SYMPTOMS WITH TESTING TODAY. Goal 1:: DECREASE C/O NECK AND RIGHT UE SX'S. Goal Progress: Goal Met Goal 2:: IMPROVE PERSONAL CARE, LIFTING, READING, SLEEP AND WORK FUNCTION. Goal Progress: Goal Met Goal 3:: INSTRUCT IN PROPHYLAXIS Goal Progress: Goal Met Plan: D/C TO HEP AND PHYSICIAN FOLLOW UP NEEDED. PATIENT AGREEABLE. If there are questions or concerns regarding this patient's physical therapy, please feel free to call me at [phone]. Thank you for the referral of this patient. Sincerely, Flor Paz, PT, Cert MDT Balance/Gait/Functional tests - Balance/Special Test Scores Oswestry Neck Score: 4
== END 2021-12-05 19:00 | disposition home or self-care (01) ==
LOC: PT 16:30
PROVIDERS: PCP Family Medicine; Visit Provider Family Medicine
DX: M54.12 Radiculopathy, cervical region (principal)
CPT/HCPCS: 97012; 97110; 97112; 97140; 97162; 97164; 97530

== ENCOUNTER → 2022-02-14 | Outpatient (CLI) | payer OTHER, SELFPAY ==
[2022-02-14 17:30] LABS: Hematocrit 44.6 % (37-47); Hemoglobin 14.2 g/dL (12.0-15.0); Mean Corp Hgb Conc 31.8 g/dL (32-36); Mean Corpuscular Hgb 28.3 pg (27.0-32.0); Mean Corpuscular Volume 88.8 fL (81-99); Mean Platelet Vol. 10.7 fl (6.2-12.0); Platelet Count 332 K/mm3 (150-450); RBC Distribution Width CV 12.2 % (11.6-14.6); RBC Distribution Width SD 39.5 fl (35.1-43.9); Red Blood Count 5.02 M/mm3 (4.2-5.4); White Blood Count 8.6 K/mm3 (4.4-11.0)
[2022-02-14 18:06] LABS: Thyroid Stim Hormone (TSH) 0.67 uIU/mL (0.358-3.74)
== END | disposition home or self-care (01) ==
LOC: WOBLAB 16:25
PROVIDERS: PCP Family Medicine; Visit Provider Obstetrics & Gynecology
DX: N92.0 Excessive and frequent menstruation with regular cycle (principal)
CPT/HCPCS: 36415; 84443; 85027

== ENCOUNTER → 2022-02-17 | Outpatient (CLI) | payer OTHER, SELFPAY ==
--- NOTE | 2022-02-17 12:53 | BI_ITS ---
MAMMOGRAPHY - BILATERAL SCREENING REASON FOR EXAM: Female, 51 years old. Routine annual screening examination. PERTINENT HISTORY: Non-contributory. Remote right stereotactic breast biopsy. TECHNIQUE: Digital bilateral breast alissa (3D mammographic acquisition) in the CC and MLO projections. 2-D mediolateral oblique (MLO) and craniocaudad (CC) views of both breasts were obtained. CAD: Full Field Digital Mammography with Computer Added Detection was performed. COMPARISON: Comparison is made with prior examination dated 06/30/2020. FINDINGS: Breast Composition: The breasts are extremely dense, which lowers the sensitivity of mammography. There are no dominant masses or suspicious calcifications. A tissue clip marker is seen in the upper central deep portion of the right breast. Stable appearance of the bilateral axillary lymph nodes. No other significant abnormalities are identified. There has been no significant change since the prior study. BI/SCRN MAMM (CAD)W/ALISSA BILAT IMPRESSION: Stable bilateral screening mammogram. Yearly follow-up mammogram recommended. (A) ASSESSMENT CATEGORY: BIRADS Category 2: Benign. A letter regarding these results will be sent to the patient by the facility within 30 days. Approximately 10% of breast cancers are not detected by mammography. A normal mammogram should not delay biopsy of a clinically suspicious abnormality. [id number] Electronically Signed: Trent Hernandez MD at 13:37 EDT ,
== END | disposition home or self-care (01) ==
LOC: OPBI 12:51
PROVIDERS: PCP Family Medicine; Referring Provider Obstetrics & Gynecology; Visit Provider Obstetrics & Gynecology
DX: Z12.31 Encounter for screening mammogram for malignant neoplasm of breast (principal)
CPT/HCPCS: 77063; 77067

== ENCOUNTER → 2022-02-21 | Outpatient (CLI) | payer OTHER, SELFPAY ==
--- NOTE | 2022-02-21 15:44 | US_ITS ---
EXAM: US PELVIS TRANSABDOMINAL, COMPLETE CLINICAL INDICATION: LLQ PAIN-IRREGULAR HEAVY MENSES TECHNIQUE: Transabdominal pelvic ultrasound was performed with grayscale and color Doppler imaging. This report was created using [employer] report [employer] technology. COMPARISON: None. FINDINGS: UTERUS/CERVIX: Several uterine fibroids are noted largest one measuring 4.7 cm posteriorly. Anteverted. The uterus measures 9.4 x 6.5 x 3.0 cm. The endometrial stripe measures 0.4 cm in thickness. RIGHT OVARY: Unremarkable. Blood flow is present in the right ovary. The right ovary measures 2.4 x 2.3 x 1.4 cm. LEFT OVARY: Left ovary not identified. FREE FLUID: None. BLADDER: Unremarkable as visualized. US/Transvaginal Non- IMPRESSION: 1. Fibroid uterus. 2. Normal right ovary. 3. Left ovary not identified. Electronically Signed: Emmett Duran MD at 10:00 EDT ,
--- NOTE | 2022-02-21 15:44 | US_ITS ---
EXAM: US PELVIS TRANSABDOMINAL, COMPLETE CLINICAL INDICATION: LLQ PAIN-IRREGULAR HEAVY MENSES TECHNIQUE: Transabdominal pelvic ultrasound was performed with grayscale and color Doppler imaging. This report was created using [employer] report [employer] technology. COMPARISON: None. FINDINGS: UTERUS/CERVIX: Several uterine fibroids are noted largest one measuring 4.7 cm posteriorly. Anteverted. The uterus measures 9.4 x 6.5 x 3.0 cm. The endometrial stripe measures 0.4 cm in thickness. RIGHT OVARY: Unremarkable. Blood flow is present in the right ovary. The right ovary measures 2.4 x 2.3 x 1.4 cm. LEFT OVARY: Left ovary not identified. FREE FLUID: None. BLADDER: Unremarkable as visualized. US/Pelvic (Non ) IMPRESSION: 1. Fibroid uterus. 2. Normal right ovary. 3. Left ovary not identified. Electronically Signed: Emmett Duran MD at 10:00 EDT ,
== END | disposition home or self-care (01) ==
LOC: US 15:42
PROVIDERS: PCP Family Medicine; Referring Provider Obstetrics & Gynecology; Visit Provider Obstetrics & Gynecology
DX: R10.32 Left lower quadrant pain (principal); N82.0 Vesicovaginal fistula; D25.9 Leiomyoma of uterus, unspecified
CPT/HCPCS: 76830; 76856

== ENCOUNTER → 2022-05-25 | Outpatient (CLI) | payer OTHER, SELFPAY ==
[2022-05-25 08:15] LABS: Free T3 3.5 pg/mL (2.18-3.98); T4 Free Direct 0.84 ng/dL (0.76-1.46)
== END | disposition home or self-care (01) ==
LOC: LAB 07:23
PROVIDERS: PCP Family Medicine; Visit Provider Family Medicine
DX: E03.9 Hypothyroidism, unspecified (principal)
CPT/HCPCS: 36415; 84439; 84443; 84481

== ENCOUNTER → 2022-10-03 | Outpatient (CLI) | payer OTHER, SELFPAY ==
--- NOTE | 2022-10-03 11:10 | RAD_ITS ---
EXAM: XR CHEST, 2 VIEWS CLINICAL INDICATION: COUGH TECHNIQUE: Frontal and lateral views of the chest. This report was created using [employer] report generation technology. COMPARISON: 03.10.21 FINDINGS: LUNGS AND PLEURAL SPACES: Unremarkable. No consolidation or edema. No pneumothorax. No effusion. HEART: Unremarkable. Cardiac silhouette not enlarged. MEDIASTINUM: Central airways and mediastinal contour are unremarkable. BONES/JOINTS: Unremarkable. SOFT TISSUES: Unremarkable. RAD/Chest PA and Lateral IMPRESSION: No radiographic evidence of acute cardiopulmonary disease. Electronically Signed: Jesus Mandel MD at 17:00 EST ,
== END | disposition home or self-care (01) ==
LOC: RAD 11:05
PROVIDERS: PCP Family Medicine; Referring Provider Family Medicine; Visit Provider Family Medicine
DX: R05.9 Cough, unspecified (principal)
CPT/HCPCS: 71046

== ENCOUNTER 2023-02-23 12:12 | Emergency (ER) | payer OTHER, SELFPAY ==
[2023-02-23 12:13] VITALS: BP 137/70; PULSE 116; RESP 18; TEMP 36.6; O2SAT 100; BMI 28.3
--- NOTE | 2023-02-23 12:41 | CT_ITS ---
HISTORY: chest and back pain. TECHNIQUE: CTA of the chest, abdomen, and pelvis was obtained after the intravenous administration of 100 mL Isovue-370 with sagittal and coronal reconstructed rotating 3-D volume rendered MIP views. Three-dimensional surface rendered sequence of the thoracic and abdominal aorta was obtained. A radiation dose optimization technique was used for this scan. 1009 images. COMPARISON: X, R1 [id number]. FINDINGS: Chest- CENTRAL AIRWAYS: Grossly patent. LUNGS: Clear. PLEURA: No pneumothorax or significant pleural effusion. HEART/PERICARDIUM: Heart within normal limits in size. No significant pericardial effusion. VESSELS: No aortic aneurysm or dissection flap. No filling defect in the pulmonary arteries. MEDIASTINUM/TALA: No pathologically enlarged lymphadenopathy. Right thyroidectomy. 9 mm left thyroid nodule. OSSEOUS STRUCTURES: Intact. Abdomen and pelvis- BOWEL: Bowel including appendix nondilated. Mild colonic diverticulosis without focal pericolonic inflammatory change. PERITONEUM: No significant ascites. LIVER: No enhancing mass. Mild fatty infiltration . GALLBLADDER: Gallbladder present. SPLEEN/PANCREAS: No focal lesions. KIDNEYS/ADRENAL GLANDS: Unremarkable. VESSELS: No abdominal aortic aneurysm or dissection flap. Mild atherosclerosis of the abdominal aorta. Patent origins of the celiac axis, superior and inferior mesenteric artery, bilateral accessory and main renal arteries, and bilateral iliac arteries. PELVIC ORGANS: 6.7 x 9.1 cm lobulated uterus with multiple rounded masses. 1.5 cm right adnexal cyst. OSSEOUS STRUCTURES: Intact. CT/CTA Chst, Abd, Pel W and/or WO IMPRESSION: No evidence for thoracic aortic aneurysm, dissection, or pulmonary embolism. No acute abnormality identified in the chest. Small left thyroid nodule. No evidence for abdominal aortic aneurysm, dissection, or significant stenosis. Enlarged leiomyomatous uterus. Small right ovarian cyst. Colonic diverticulosis without acute diverticulitis. Hepatic steatosis. Electronically Signed: Lisseth Brunner MD at 14:00 EDT ,
[2023-02-23 12:51] VITALS: PULSE 111; RESP 24; O2SAT 98
[2023-02-23] MEDS: Aspirin 81 MG TAB.CHEW 324 MG PO (12:51)
[2023-02-23] MEDS: 0.9% Normal Saline 1,000 ML 1000 ML IV (12:51)
[2023-02-23 13:08] LABS: Absolute Lymphocyte Count 0.37 X10^3/uL (0.83-4.51); Absolute Neutrophil Count 6.8 X10^3/uL (2.0-7.7); Basophil# 0.04 X10^3/uL; Basophil% 0.5 % (0-1); Differential Indicated SCAN CRITERIA MET; Eosinophil# 0.08 X10^3/uL; Hemoglobin 14.6 g/dL (12.0-15.0); Lymphocyte # 0.37 X10^3/ul (0.83-4.51); Lymphocyte % 4.6 % (19-41); Mean Corp Hgb Conc 32.4 g/dL (32-36); Mean Corpuscular Hgb 28.2 pg (27.0-32.0); Mean Corpuscular Volume 86.9 fL (81-99); Mean Platelet Vol. 10.5 fl (6.2-12.0); Monocyte# 0.77 X10^3/uL; Monocyte% 9.5 % (0-10); NRBC Flagged by Analyzer 0 % (0-5); Neutrophil # 6.81 X10^3/uL (2.7-7.7); POSITIVE DIFFERENTIAL YES; Platelet Count 284 K/mm3 (150-450); RBC Distribution Width CV 12.9 % (11.6-14.6); RBC Distribution Width SD 40.8 fl (35.1-43.9); Red Blood Count 5.18 M/mm3 (4.2-5.4); White Blood Count 8.1 K/mm3 (4.4-11.0)
[2023-02-23 13:25] LABS: D-Dimer Quantitative (DVT/PE) < 0.27 FEU/ug/m (0.27-0.49)
[2023-02-23 13:29] LABS: AST(SGOT) 20 U/L (15-37); Alanine Aminotransfer ALT/SGPT 31 U/L (13-56); Albumin, Serum 4.1 g/dL (3.2-5.0); Alkaline Phosphatase 89 U/L (45-117); Anion Gap 6 (5-15); BUN 7 mg/dL (7-18); BUN/Creat Ratio 12.4 RATIO (10-20); Calcium,Total 9.3 mg/dL (8.5-10.1); Chloride 102 mmol/L (98-107); Creatinine, Serum 0.56 mg/dL (0.55-1.02); EST Glomerular Filtration Rate 121 mL/min (>60); Est Glom Filt Rate - Afr Amer 146 mL/min (>60); Estimated Creatinine Clearance 90.69 ml/min; Glucose 102 mg/dL (74-106); Lipase 43 U/L (13-75); Magnesium 2.2 mg/dL (1.6-2.6); Potassium 3.8 mmol/L (3.5-5.1); Protein, Total 8.1 g/dL (6.4-8.2); Sodium Level 135 mmol/L (136-145); Thyroid Stim Hormone (TSH) 0.61 uIU/mL (0.358-3.74); Troponin-I HS (w/2H Reflex) < 3 pg/mL (3.0-54.0)
[2023-02-23 13:41] LABS: Differential Comment SCANNED
[2023-02-23 14:03] VITALS: BP 124/67; PULSE 115; RESP 22; O2SAT 98
--- NOTE | 2023-02-23 14:46 | ED.VIS.CHEST ---
HPI History of Present Illness Chief Complaint: Chest Pain Narrative Narrative: 52-year-old female past medical history of hypothyroidism, presents with multiple somatic complaints. She was at her primary care provider's office because she wanted evaluated for symptoms she began having after she ate a sandwich this morning. She stated that she was not feeling well so she had something to eat, then she began feeling nauseated. She had been feeling weak and she thought may be her blood sugar had been low and that is why she ate a sandwich. She felt nauseated and then had palpitations. She has began experiencing mid back pain. She also states that she felt heavy thump in her chest. She denies any fevers or chills, she went to see her primary care physician who told her to come to the emergency department for further evaluation. Of note, she does note that she changed her thyroid medication secondary to a change in her insurance. [facility] Medical History Arthritis Asthma Hemorrhoids Shingles Thyroid disease Home Medications calcium carbonate 600 mg calcium (1,500 mg) tablet (Caltrate 600) 600 mg PO BIDCM #60 TABLETS 12/09/14 [Rx Last Taken 05/04/15 600 mg] cholecalciferol (vitamin D3) 125 mcg (5,000 unit) capsule 2,000 unit PO DAILY 05/04/15 [History Last Taken 05/04/15] levothyroxine 50 mcg tablet 50 mcg PO DAILY 05/04/15 [History Last Taken 05/04/15] cyclobenzaprine 10 mg tablet 10 mg PO TID PRN Muscle Spasm #20 tabs 02/06/20 [Rx Last Taken Unknown] methylprednisolone 4 mg tablets in a dose pack (Medrol (Aidan)) 4 mg PO DAILY #21 tabs 10/24/21 [Rx Last Taken Unknown] valacyclovir 1 gram tablet (Valtrex) 1,000 mg PO TID #21 tabs 10/24/21 [Rx Last Taken Unknown] Allergy/AdvReac Type Severity Reaction Status Date / Time No Known Allergies Allergy Verified 12/16/21 15:19 Surgical History Hx of section right thyroid lobectomy Social History Smoking Status: Never smoker alcohol intake: current alcohol intake frequency: a few times a week ROS ROS ED ROS Narrative Constitutional: No fever, no chills. HEENT: No sore throat. No neck pain. No loss of vision. No rhinorrhea. Cardiovascular: Positive chest pain. No palpitations. No pedal edema. Respiratory: No cough, no shortness of breath. Abdominal: No abdominal pain. Positive nausea. No vomiting. Genitourinary: No dysuria. No hematuria. Musculoskeletal: No myalgias. No arthralgias. Mid back pain. Neurologic: No headaches. No dizziness. No lightheadedness. Skin: No rash. No change in color. Psychiatric: No depression. No anxiety. EXAM Physical Exam Narrative Exam Narrative: Afebrile. Vital signs noted. HEENT: Normocephalic. Atraumatic. PERRL, EOMI. Neck soft and supple. No point tenderness or step off. Cardiovascular: Positive tachycardia. No murmurs, rubs, or gallops appreciated. Respiratory: No tachypnea. Lungs clear to auscultation bilaterally. Gastrointestinal: Abdomen soft, nontender, with normoactive bowel sounds. No rebound or guarding. Neurological: Awake. Alert. Nonfocal, nonlateralizing. Skin: No rash. Normal color. No pallor. Musculoskeletal: No pedal edema. Full range of motion extremities. Const Vital Signs: 02/23/23 12:13 02/23/23 12:51 02/23/23 14:03 Temperature 97.8 F Temperature Source Temporal Pulse Rate 116 H 111 H 115 H Respiratory Rate 18 24 H 22 H Blood Pressure 137/70 H 124/67 H Blood Pressure Mean 92 86 Pulse Ox 100 98 98 Oxygen Delivery Method Room Air Room Air Room Air MDM MDM MDM Narrative Medical decision making narrative: In the differential diagnosis is acute coronary syndrome versus pulmonary embolism versus dissection. Given her mid back pain, I do feel that CT imaging is indicated. Comprehensive work-up was pursued. EKG was obtained and interpreted by myself independently as sinus tachycardia at 109 bpm without ectopy or acute ST changes. No STEMI. There is no significant change from the EKG performed in her primary care provider's office. I reviewed the note from her primary care provider. They are concerned about a sudden event like pulmonary embolism and given her exposure to COVID in the sense that her has been recently diagnosed and started Paxlovid. Patient was able to drive here. I reviewed her laboratory work and she has normal white count of 8.1, hemoglobin is normal at 14.6, platelet count normal at 284. D-dimer is negative at less than 0.27. Sodium slightly low 135 which I think is nonspecific, normal potassium of 3.8, glucose appropriately elevated at 102 with a normal anion gap of 6. LFTs are grossly unremarkable and she has a normal alk phos of 89. High-sensitivity troponin is less than 3. I do feel that ischemic event has been ruled out with both the EKG and the negative troponin. However, repeat troponin will also be obtained for comparison to check for a delta. TSH normal at 0.61. Given her prolonged tachycardia, although she has a negative D-dimer, to rule out dissection I obtained a CTA of the abdomen and pelvis along with a chest. In review of the radiology report there is no evidence of dissection or aneurysm noted. Patient is not hypoxic as she is 98 to 100% on room air. I do feel that pulmonary embolism has been ruled out with the imaging as well. At this point in time, I am unsure as to the cause of her mid back pain and her symptoms of nausea, and her sinus tachycardia. Regardless, I do feel that she can be discharged to follow-up with her primary care provider. Her repeat troponin is also less than 3. She was administered Toradol for analgesia as she states that she does not want narcotic pain medication. As she has had negative work-up here, I am unsure as to the cause of her sinus tachycardia, but I do feel that she can be discharged safely home with follow-up. Patient and her daughter are agreeable to the plan. Return instructions were reviewed. Disposition is discharged home in stable condition. History & Record Review Discussion w/independent historian: Patient and Family Additional record(s) reviewed:: Prior ED visit Lab Data Attestation: I reviewed the patient's lab results. Labs: Laboratory Results - last 24 hr 02/23/23 02/23/23 02/23/23 12:20 12:20 12:20 WBC 8.1 RBC 5.18 Hgb 14.6 Hct 45.0 MCV 86.9 MCH 28.2 MCHC 32.4 RDW Std Deviation 40.8 RDW Coeff of Felicitas 12.9 Plt Count 284 MPV 10.5 Immature Gran % (Auto) 0.400 Neut % (Auto) 84.0 H Lymph % (Auto) 4.6 L Baxter % (Auto) 9.5 Eos % (Auto) 1.0 Baso % (Auto) 0.5 Absolute Neuts (auto) 6.8 Absolute Lymphs (auto) 0.37 L Nucleated RBC % 0 Differential Comment SCANNED D-Dimer Quant (PE/DVT) < 0.27 L Sodium 135 L Potassium 3.8 Chloride 102 Carbon Dioxide 27.0 Anion Gap 6 BUN 7 Creatinine 0.56 Estim Creat Clear Calc 90.69 Est GFR (MDRD) Af Amer 146 Est GFR (MDRD) Non-Af 121 BUN/Creatinine Ratio 12.4 Glucose 102 Calcium 9.3 Magnesium 2.2 Total Bilirubin 0.30 AST 20 ALT 31 Alkaline Phosphatase 89 Troponin I High Sens < 3 L Total Protein 8.1 Albumin 4.1 Globulin 4.0 Albumin/Globulin Ratio 1.0 Lipase 43 TSH 0.61 02/23/23 15:11 WBC RBC Hgb Hct MCV MCH MCHC RDW Std Deviation RDW Coeff of Felicitas Plt Count MPV Immature Gran % (Auto) Neut % (Auto) Lymph % (Auto) Baxter % (Auto) Eos % (Auto) Baso % (Auto) Absolute Neuts (auto) Absolute Lymphs (auto) Nucleated RBC % Differential Comment D-Dimer Quant (PE/DVT) Sodium Potassium Chloride Carbon Dioxide Anion Gap BUN Creatinine Estim Creat Clear Calc Est GFR (MDRD) Af Amer Est GFR (MDRD) Non-Af BUN/Creatinine Ratio Glucose Calcium Magnesium Total Bilirubin AST ALT Alkaline Phosphatase Troponin I High Sens < 3 L Total Protein Albumin Globulin Albumin/Globulin Ratio Lipase TSH Radiography Diagnostic Testing: Clinical Impression(s) from Imaging Studies Chest/Abdomen/Pelvis CTA 02/23/23 12:41 IMPRESSION: No evidence for thoracic aortic aneurysm, dissection, or pulmonary embolism. No acute abnormality identified in the chest. Small left thyroid nodule. No evidence for abdominal aortic aneurysm, dissection, or significant stenosis. Enlarged leiomyomatous uterus. Small right ovarian cyst. Colonic diverticulosis without acute diverticulitis. Hepatic steatosis. Electronically Signed: Lisseth Brunner MD at 14:00 EDT Reading Location ID and State: [facility] / [place] Tel , Service support , Discharge Plan Triage Chief Complaint: Chest Pain Other Complaint: Back Nausea/Vomiting ED Provider: José Luis Lacey Dx/Rx/DC Orders Clinical Impression: Acute mid back pain, Nausea, Sinus tachycardia Instructions: ED About Arrhythmias, ED Back Pain (Acute or Chronic) Prescriptions: No Action valacyclovir [Valtrex] 1 gram tablet 1,000 mg PO TID Qty: 21 0RF methylprednisolone [Medrol (Aidan)] 4 mg tablets,dose pack 4 mg PO DAILY Qty: 21 0RF Rx Instructions: per package instructions calcium carbonate [Caltrate 600] 600 MG tablet 600 mg PO BIDCM Qty: 60 0RF Label Comments: supplement Patient states she takes 600mg daily per Dr. Cummings levothyroxine 50 MCG tablet 50 mcg PO DAILY Label Comments: thyroid cholecalciferol (vitamin D3) 5,000 UNIT capsule 2,000 unit PO DAILY Label Comments: SUPPLEMENT cyclobenzaprine 10 MG tablet 10 mg PO TID PRN (Reason: Muscle Spasm) Qty: 20 0RF Primary Care Provider: Ellie James Referrals: Ellie James DO [Primary Care Provider] - 3-5 Days if not improving Disposition Disposition: Home, Self Care
[2023-02-23 14:59] LABS: Reflex Troponin-HS? (from REC) Y
[2023-02-23] MEDS: Ketorolac 30 MG/ML Syringe IV (15:09)
[2023-02-23 15:53] LABS: Troponin-I HS < 3 pg/mL (3.0-54.0)
[2023-02-23 16:07] VITALS: BP 107/56; PULSE 115; RESP 15; O2SAT 96
[2023-02-23 16:40] VITALS: TEMP 37.4
== END 2023-02-23 16:41 | disposition home or self-care (01) ==
PROVIDERS: Emergency Provider Emergency Medicine; PCP Family Medicine; Visit Provider Emergency Medicine
DX: M54.9 Dorsalgia, unspecified (principal); R11.0 Nausea; R00.0 Tachycardia, unspecified
CPT/HCPCS: 71275; 74174; 80053; 83690; 83735; 84443; 84484; 85025; 85379; 93005; 96361; 96374; 99285; Q9967; A4216

== ENCOUNTER → 2023-04-18 | Outpatient (CLI) | payer OTHER, SELFPAY ==
[2023-04-18 09:27] LABS: Vitamin D,25 Hydroxy 48.2 ng/mL
[2023-04-18 09:39] LABS: Free T3 4.9 pg/mL (2.18-3.98); T4 Free Direct 1.08 ng/dL (0.76-1.46); Thyroid Stim Hormone (TSH) 0.32 uIU/mL (0.358-3.74)
== END | disposition home or self-care (01) ==
LOC: LAB 08:21
PROVIDERS: PCP Family Medicine; Visit Provider Family Medicine
DX: E03.9 Hypothyroidism, unspecified (principal); E55.9 Vitamin D deficiency, unspecified
CPT/HCPCS: 36415; 82306; 84439; 84443; 84481

== ENCOUNTER → 2023-05-11 | Outpatient (CLI) | payer OTHER, SELFPAY ==
--- NOTE | 2023-05-11 14:46 | BI_ITS ---
MAMMOGRAPHY - BILATERAL SCREENING REASON FOR EXAM: Female, 52 years old. Routine annual screening examination. PERTINENT HISTORY: Non-contributory. Remote right stereotactic breast biopsy. TECHNIQUE: Digital bilateral breast alissa (3D mammographic acquisition) in the CC and MLO projections. 2-D mediolateral oblique (MLO) and craniocaudad (CC) views of both breasts were obtained. CAD: Full Field Digital Mammography with Computer Added Detection was performed. COMPARISON: Comparison is made with prior study of February 17, 2022 and June 30, 2020 FINDINGS: Breast Composition: The breasts are extremely dense, which lowers the sensitivity of mammography. There are no dominant masses or suspicious calcifications. A tissue clip marker is once again seen in the slightly upper central portion of the right breast. Stable appearance of the bilateral axillary lymph nodes. No other significant abnormalities are identified. There has been no significant change since the prior study. BI/SCRN MAMM (CAD)W/ALISSA BILAT IMPRESSION: Stable bilateral screening mammogram. Yearly follow-up mammogram recommended. (A) ASSESSMENT CATEGORY: BIRADS Category 2: Benign. A letter regarding these results will be sent to the patient by the facility within 30 days. Approximately 10% of breast cancers are not detected by mammography. A normal mammogram should not delay biopsy of a clinically suspicious abnormality. [id number] Electronically Signed: Trent Hernandez MD at 15:30 EDT ,
--- NOTE | 2023-05-11 14:46 | US_ITS ---
EXAM: US SOFT TISSUES HEAD AND NECK, THYROID CLINICAL INDICATION: NODULES -- right thyroidectomy TECHNIQUE: Greyscale and color doppler imaging was performed of the thyroid gland. COMPARISON: 07/18/2016 FINDINGS: LEFT THYROID LOBE: 3.6 x 1.1 x 1.3 cm. There is a mixed echogenicity, but predominantly cystic nodule in the midportion of the left thyroid lobe measuring 12 x 7 x 7 mm. RIGHT THYROID LOBE: Right thyroidectomy. ISTHMUS: Unremarkable. 3 mm. No thyroid nodules are present. US/Thyroid IMPRESSION: 1. There is a mixed echogenicity, but predominantly cystic nodule in the midportion of the left thyroid lobe measuring 12 x 7 x 7 mm. The solid component is isoechoic. The nodule is isoechoic, ybmrb-kajf-nhoc, smoothly marginated and contains no echogenic foci. TI-RADS points: 2. TI-RADS category: TR2. This nodule is not suspicious and no FNA or follow-up is necessary. 2. Right thyroidectomy. Electronically Signed: Jesus Wallis MD at 22:31 EDT ,
== END | disposition home or self-care (01) ==
LOC: US 14:44
PROVIDERS: PCP Family Medicine; Referring Provider Family Medicine; Visit Provider Family Medicine
DX: E04.2 Nontoxic multinodular goiter (principal); Z12.31 Encounter for screening mammogram for malignant neoplasm of breast
CPT/HCPCS: 76536; 77063; 77067

== ENCOUNTER → 2023-06-29 | Outpatient (CLI) | payer OTHER, SELFPAY ==
[2023-06-29 13:03] LABS: Free T3 3.3 pg/mL (2.18-3.98); T4 Free Direct 0.83 ng/dL (0.76-1.46); Thyroid Stim Hormone (TSH) 1.22 uIU/mL (0.358-3.74)
== END | disposition home or self-care (01) ==
LOC: LAB 11:42
PROVIDERS: PCP Family Medicine; Referring Provider Family Medicine; Visit Provider Family Medicine
DX: E03.9 Hypothyroidism, unspecified (principal)
CPT/HCPCS: 36415; 84439; 84443; 84481

== ENCOUNTER 2023-09-10 12:58 | Day surgery (SDC) | payer OTHER, SELFPAY ==
--- NOTE | 2023-09-10 13:15 | HP.PCM_ITS ---
HPI - General General Date of Service: 09/10/23 HPI Narrative JASON GARCIA, is a 53 F who presents for screening colonoscopy. Patient had a colonoscopy 10 years ago which was negative per patient?scope was done due to issues with constipation which have resolved. Patient denies any family history of colon cancer. Patient has bowel movements daily denies any blood. Patient denies any chronic abdominal pain/nausea/vomiting/reflux. [facility] Medical History (Updated 09/06/23 @ 12:16 by Cynthia Martini) Arthritis Asthma Chest pain COVID-19 Hemorrhoids History of kidney stones History of steroid therapy MRSA infection Non-smoker Shingles Thyroid disease Vasovagal reaction Wears glasses Home Medications cholecalciferol (vitamin D3) 125 mcg (5,000 unit) capsule 2,000 unit PO DAILY 05/04/15 [History Last Taken 05/04/15] albuterol sulfate 90 mcg/actuation aerosol inhaler 2 puff inhalation Q4H PRN shortness of breath or wheezing 08/14/23 [History Last Taken Unknown] fluticasone 250 mcg-salmeterol 50 mcg/dose blistr powdr for inhalation (Advair Diskus) 1 inh inhalation BID 08/14/23 [History Last Taken Unknown] loratadine 10 mg tablet 10 mg PO DAILY 08/14/23 [History Last Taken Unknown] kabisbdpimzf-Ug-pzxe-minerals 18 mg-0.4 mg tablet 1 tab PO DAILY 08/14/23 [History Last Taken Unknown] thyroid (pork) 60 mg tablet (STITCHING MACHINE SETTER Thyroid) 60 mg PO .COMPLEX 08/14/23 [History Last Taken Unknown] thyroid (pork) 90 mg tablet (STITCHING MACHINE SETTER Thyroid) 90 mg PO .COMPLEX 08/14/23 [History Last Taken Unknown] Allergy/AdvReac Type Severity Reaction Status Date / Time No Known Allergies Allergy Verified 09/10/23 13:24 Family History (Updated 08/14/23 @ 10:54 by Vania Marcos) Mother Colon polyps Surgical History History of hemorrhoidectomy Hx of section Hx of colonoscopy right thyroid lobectomy Social History (Updated 08/14/23 @ 10:55 by Vania Marcos) household members: spouse current occupational status: employed Smoking Status: Never smoker alcohol intake: current alcohol intake frequency: a few times a week substance use type: does not use Past Medical/Surgical History Planned Operation Planned Operative Procedure/s: CSCOPE S.O.S: No Previous Hospitalizations/Surgeries HX Hospitalizations: No HX of Surgeries: 2002 HEMORRHOIDECTOMY 99, LOCAL Any Problems With Anesthesia: No You/Your Family Experience Fever (Hyperthermia) With Anes: No Cholinesterase deficiency: No Cardiovascular Hx Chest Pain within Last 2 months: Yes Hx of Irregular Heartbeat and/or Afib: No Hx Heart Attack: No Hx Congestive Heart Failure: No Hx Rheumatic Fever: No Hx Hypertension: No Hx Internal Defibrillator: No Hx Pacemaker: No Hx Cardiac Catheterization: No Hx Cardiac Surgery/Stents/Etc.: No Hx Stress Test: No (ECHO ONLY 2011) Hx Pain in Legs when Walking/Leg Cramps: No Respiratory Chronic Cough: No HX of Shortness of Breath: Yes (WITH ASTHMA ATTACK/LAST JUL 2014) Hoarseness: No Hx Chronic Obstructive Pulmonary Disease (COPD): No Hx Asthma: Yes (USES RESCUE INHALER NEEDED.) Hx Emphysema: No Hx Sleep Apnea: No CPAP: No BIPAP: No Hx Respiratory Tract Infection/Cold (presently): No Do You Snore Loudly (louder than talking or can be heard): Yes Do You Often Feel Tired/ Fatigued/ Sleepy Dring Daytime?: No Has Anyone Observed You Stop Breathing During Sleep?: No Result (for STOP score): Negative Hx Smoking: No Smoking Status: Never smoker Gastrointestinal Hx Gastrointestinal Disorders: No Hx Gastrointestinal Bleed: No Hx Ulcer: No Hx Hiatal Hernia: No Difficulty Chewing/Swallowing: No Special diet followed at home: No Hx Unplanned Weight Loss of 20#: No HX Unplanned Weight Gain of 20#: No Neurological Hx Seizures: No HX Syncope/Blackout Spells/Unconsciousness: No Hx Transient Ischemic Attacks (TIA): No Hx Multiple Sclerosis: No Hx Parkinson's Disease: No Hx Head/Neck Injury: No Hx Headaches: Yes (MIGRAINES) Hx Back Injury/Pain: No Recent Onset of Speech Difficulty: No Restless Legs: No Does patient have nerve stimulator: No Blood Disorder Hx Leukemia: No Bleeding Tendencies: No Hx Deep Vein Thrombosis: No Hx High Cholesterol: No Blood Transmitted Disease: No Hx Hepatitis: No Hx Cirrhosis: No Hx Anemia: No Hx Blood Disorders: No Reproduction Is Patient Lactating: No Hx Hysterectomy: No Hx Tubal Ligation: No Are You Post Menopause: No Genitourinary Hx Renal Disease: No Hx Dialysis: No Musculoskeletal Hx Arthritis: No Hx Rheumatoid Arthritis: No Hx Gout: No Recent Onset of an Orthopedic Problem: No Endocrine Hx Diabetes: No Thyroid Disease: Yes Hx Steroid Therapy: Yes (JANUARY 2014) Psycho/Social Hx Substance Use: No Hx Alcohol Use: No Hx Anxiety: Yes Hx Depression: No Mental Illness: No Hx Dementia: No Miscellaneous Hx Cancer: No Recent Exposure to Contagious Disease: No Hx of C-Diff: No Any Loose Teeth: No Allergies No Known Allergies Allergy (Verified 09/10/23 13:24) Maternal: Family History (Updated 08/14/23 @ 10:54 by Vania Marcos) Mother Colon polyps Hypertension Paternal: Family History (Updated 08/14/23 @ 10:54 by Vania Marcos) Mother Colon polyps Diabetes and Heart Disease Discharge Is Pt Admitted From a Residential, or a [facility]: No After D/C, Where Do you Plan to Go: Return Home Physical Exam Const alert, oriented x3 and no apparent distress HEENT normocephalic and head/scalp atraumatic Resp normal respiratory effort Cardio regular rate GI soft to palpation and non-tender; Negative for non-distended Palpation: Negative for guarding Extremity no clubbing, cyanosis or edema Skin no rashes or lesions noted Neuro CN's II-XII intact bilaterally Psych mental status grossly normal Assessment & Plan Assessment/Plan (1) Encounter for screening for malignant neoplasm of colon: Surgery Risks - Colonoscopy I discussed with the patient the risks of the procedure: Yes Risks Include but are not Limited To: Risks include but are not limited to: Bleeding, perforation requiring further surgery, inability to complete colonoscopy requiring barium enema.
[2023-09-10 13:24] VITALS: BP 119/67; PULSE 89; RESP 18; TEMP 36.8; O2SAT 98; BMI 29.5
[2023-09-10] MEDS: Lactated Ringers 1,000 ML 15 ML IV (13:32)
[2023-09-10 13:42] LABS: Internal QC Validated? YES +Cl - CLEAR BKGD; Pregnancy, Urine Negative Negative
--- NOTE | 2023-09-10 14:39 | OP.COLON_ITS ---
Patient Name: Batsheva Block Procedure Date: 09/10/2023 2:12 PM Date of : 1970 Age: 53 Procedure: Colonoscopy Indications: Screening for colorectal malignant neoplasm Providers: Pippa Mcdermott MD Medicines: Monitored Anesthesia Care Patient Profile: This is a 53 year old female. Last Colonoscopy: 10 years ago. Complications: No immediate complications. Procedure: Pre-Anesthesia Assessment: - Prior to the procedure, a History and Physical was performed, and patient medications and allergies were reviewed. The patient's tolerance of previous anesthesia was also reviewed. The risks and benefits of the procedure and the sedation options and risks were discussed with the patient. All questions were answered, and informed consent was obtained. Prior Anticoagulants: The patient has taken no anticoagulant or antiplatelet agents. ASA Grade Assessment: Per anesthesia. After reviewing the risks and benefits, the patient was deemed in satisfactory condition to undergo the procedure. After I obtained informed consent, the scope was passed under direct vision. Throughout the procedure, the patient's blood pressure, pulse, and oxygen saturations were monitored continuously. The Colonoscope was introduced through the anus and advanced to the cecum, identified by the appendiceal orifice, ileocecal valve and palpation. The colonoscopy was performed without difficulty. The patient tolerated the procedure well. The quality of the bowel preparation was good. Scope In: 2:20:21 PM Scope Withdrawal Time 0 hours 5 minutes 49 seconds Scope Out: 2:34:28 PM Total Procedure Duration Time 0 hours 14 minutes 7 seconds Findings: The perianal and digital rectal examinations were normal. Multiple small-mouthed diverticula were found in the sigmoid colon and descending colon. The exam was otherwise without abnormality on direct and retroflexion views. Impression: - Diverticulosis in the sigmoid colon and in the descending colon. - The examination was otherwise normal on direct and retroflexion views. - No specimens collected. Recommendation: - Discharge patient to home. - Resume previous diet. - Continue present medications. - Repeat colonoscopy in 10 years for screening purposes. Procedure Code(s): --- Professional --- G0121, PT, Colorectal cancer screening; colonoscopy on individual not meeting criteria for high risk Diagnosis Code(s): --- Professional --- Z12.11, Encounter for screening for malignant neoplasm of colon K57.30, Diverticulosis of large intestine without perforation or abscess without bleeding CPT copyright 2021 [employer]. All rights reserved. The codes documented in this report are preliminary and upon air carrier operations inspector review may be revised to meet current compliance requirements. MD Pippa Ga MD 09/10/2023 2:39:32 PM This report has been signed electronically. Number of Addenda: 0 Note Initiated On: 09/10/2023 2:12 PM
[2023-09-10 14:40] VITALS: BP 119/67; PULSE 78; RESP 18; TEMP 36.4; O2SAT 96
--- NOTE | 2023-09-10 14:40 | OP.CCLET_ITS ---
09/10/2023 Ellie James [address] [place] [address] Re : Colonoscopy procedure for Batsheva Block Dear Dr. James This procedure was performed on Sunday, September 10, 2023. My impressions and recommendations are as follows: Impressions : - Diverticulosis in the sigmoid colon and in the descending colon. - The examination was otherwise normal on direct and retroflexion views. - No specimens collected. Recommendations : - Discharge patient to home. - Resume previous diet. - Continue present medications. - Repeat colonoscopy in 10 years for screening purposes. My findings are described in the full procedure note, which is enclosed. If I can be of further assistance, please feel free to contact me at Doctor phone number(s): , Work: . Sincerely, MD Pippa Ga MD 09/10/2023 2:39:32 PM This report has been signed electronically.
[2023-09-10 14:45] VITALS: BP 119/67; BP 91/58; PULSE 75; RESP 18; O2SAT 96
[2023-09-10 14:50] VITALS: BP 119/67; BP 91/51; PULSE 73; RESP 18; O2SAT 98
[2023-09-10 14:57] VITALS: BP 104/52; BP 119/67; PULSE 83; RESP 18; TEMP 37.2; O2SAT 97
[2023-09-10 15:10] VITALS: BP 119/67
== END 2023-09-10 15:35 | disposition home or self-care (01) ==
LOC: EN 12:58 → AC 12:59
PROVIDERS: Anesthesiology; PCP Family Medicine; Referring Provider Family Medicine; Visit Provider Surgery
PROC: 0DJD8ZZ Inspection of Lower Intestinal Tract, Via Natural or Artificial Opening Endoscopic (ICD-10-PCS; CPT 45378; principal; 2023-09-10 14:10)
DX: Z12.11 Encounter for screening for malignant neoplasm of colon (principal); K57.30 Diverticulosis of large intestine without perforation or abscess without bleeding; E03.9 Hypothyroidism, unspecified; J45.909 Unspecified asthma, uncomplicated; Z79.51 Long term (current) use of inhaled steroids; Z79.899 Other long term (current) drug therapy; Z86.16 Personal history of COVID-19
CPT/HCPCS: 45378; 81025; J7120; J2405

== ENCOUNTER → 2024-06-27 | Outpatient (CLI) | payer OTHER, SELFPAY ==
--- NOTE | 2024-06-27 15:40 | BI_ITS ---
MAMMOGRAPHY - BILATERAL SCREENING REASON FOR EXAM: Female, 53 years old. Routine annual screening examination. PERTINENT HISTORY: Non-contributory. Minimal right stereotactic breast biopsy. TECHNIQUE: Digital bilateral breast alissa (3D mammographic acquisition) in the CC and MLO projections. 2-D mediolateral oblique (MLO) and craniocaudad (CC) views of both breasts were obtained. CAD: Full Field Digital Mammography with Computer Added Detection was performed. COMPARISON: Comparison is made with prior study dated May 11, 2023 and February 17, 2022. FINDINGS: Breast Composition: The breasts are extremely dense, which lowers the sensitivity of mammography. There are no dominant masses or suspicious calcifications. A tissue clip marker is again seen in the slightly upper central portion of the right breast. Stable small bilateral axillary lymph nodes. No other significant abnormalities are identified. There has been no significant change since the prior study. BI/SCRN MAMM (CAD)W/ALISSA BILAT IMPRESSION: Stable bilateral screening mammogram. Yearly follow-up mammogram recommended. (A) ASSESSMENT CATEGORY: BIRADS Category 2: Benign. A letter regarding these results will be sent to the patient by the facility within 30 days. Approximately 10% of breast cancers are not detected by mammography. A normal mammogram should not delay biopsy of a clinically suspicious abnormality. [id number] Electronically Signed: Trent Hernandez MD at 8:34 EDT ,
== END | disposition home or self-care (01) ==
LOC: OPBI 15:38
PROVIDERS: PCP Family Medicine; Referring Provider Family Medicine; Visit Provider Family Medicine
DX: Z12.31 Encounter for screening mammogram for malignant neoplasm of breast (principal)
CPT/HCPCS: 77063; 77067

== ENCOUNTER → 2025-05-06 | Outpatient (CLI) | payer OTHER, SELFPAY ==
[2025-05-06 10:03] LABS: Free T3 4.8 pg/mL (2.18-3.98); Vitamin D,25 Hydroxy 36.2 ng/mL (30-100)
== END | disposition home or self-care (01) ==
LOC: LAB.FUTURE 08:26 → LAB 08:29
PROVIDERS: PCP Family Medicine; Referring Provider Family Medicine; Visit Provider Family Medicine
DX: E03.9 Hypothyroidism, unspecified (principal); E55.9 Vitamin D deficiency, unspecified
CPT/HCPCS: 36415; 82306; 84439; 84443; 84481

== ENCOUNTER → 2025-06-04 | Outpatient (CLI) | payer OTHER, SELFPAY | END | disposition home or self-care (01) | LOC: OPBD 14:43 | PROVIDERS: PCP Family Medicine; Referring Provider Family Medicine; Visit Provider Family Medicine | DX: M81.0 Age-related osteoporosis without current pathological fracture (principal) | CPT/HCPCS: 77080 ==

== ENCOUNTER → 2025-06-30 | Outpatient (CLI) | payer OTHER, SELFPAY ==
--- NOTE | 2025-06-30 14:36 | BI_ITS ---
EXAM: SCRN MAMM (CAD)W/ALISSA BILAT DATE: 06/30/2025 CLINICAL HISTORY: F, Age 54 y/o , SCREENING No family history. History of prior right stereotactic breast biopsy. TECHNIQUE: Procedure Code: [id number] Modality: MG Procedure: SCRN MAMM (CAD)W/ALISSA BILAT COMPARISON: Prior exam(s) dated June 27, 2024.. FINDINGS: TISSUE DENSITY: The breasts are heterogeneously dense, which may obscure small masses. Bilateral Breast Mammographic Findings: Focal area of architectural distortion is seen in the upper lateral aspect of the left breast. Skin. The patient will be recalled for additional views including magnification compression views followed by ultrasound. BI/SCRN MAMM (CAD)W/ALISSA BILAT IMPRESSION: Focal area of architectural distortion is seen in the upper lateral aspect of t he left breast as described with calcifications. The patient will be recalled for additional mammographic views as well as sonog quentin. OVERALL FINAL ASSESSMENT BI-RADS 0: INCOMPLETE - NEED ADDITIONAL IMAGING EVALUATION. RECOMMENDATION: Ultrasound Recommended Additional Recommendation none A letter with findings and recommendations will be mailed to the patient. Reading Location: [id number]
== END | disposition home or self-care (01) ==
LOC: OPBD 14:34
PROVIDERS: PCP Family Medicine; Referring Provider Family Medicine; Visit Provider Family Medicine
DX: Z12.31 Encounter for screening mammogram for malignant neoplasm of breast (principal)
CPT/HCPCS: 77063; 77067

== ENCOUNTER → 2025-07-01 | Outpatient (CLI) | payer OTHER, SELFPAY ==
--- NOTE | 2025-07-01 12:58 | BI_ITS ---
EXAM: DIAG MAMM W/CAD, UNILAT 07/01/2025 CLINICAL HISTORY: F, Age 54 y/o , ABN MAMM TECHNIQUE: Procedure Code: [id number] Modality: MG Procedure: DIAG MAMM W/CAD, UNILAT. Compression magnification spot views of the left breast were obtained. COMPARISON: Prior exam(s) dated prior mammogram dated June 30, 2025.. FINDINGS: TISSUE DENSITY: The breasts are heterogeneously dense, which may obscure small masses. Bilateral Breast Mammographic Findings: Persistent architectural distortion and microcalcifications in the upper-outer aspect of the left breast. Correlation with ultrasound recommended. BI/DIAG MAMM W/CAD, UNILAT IMPRESSION: Persistent architectural distortion and microcalcifications in the upper-outer quadrant of the left breast as described. Sonographic correlation recommended. OVERALL FINAL ASSESSMENT BI-RADS 0: INCOMPLETE - NEED ADDITIONAL IMAGING EVALUATION. RECOMMENDATION: Ultrasound Recommended Additional Recommendation none A letter with findings and recommendations will be mailed to the patient. Reading Location: [facility]
--- NOTE | 2025-07-01 12:58 | US_ITS ---
PROCEDURE: BREAST LIMITED UNILATERAL 07/01/2025 REASON FOR EXAM: F, Age 54 y/o , ABN MAMM. Abnormal left mammogram. COMPARISON: Prior mammogram done earlier in the day.. TECHNIQUE: Procedure Code: USBRSTLIMIT Modality: US Procedure: BREAST LIMITED UNILATERAL. The upper-outer quadrant of the left breast was examined with ultrasound. FINDINGS: There is evidence of enlarged lymph nodes in the left axilla. The largest measures 2.5 cm 1.1 cm 1 cm. The cortex measures 4 mm. No sonographic abnormality is seen in the upper-outer quadrant of the left breast. MRI examination recommended for further evaluation. US/Breast Limited Unilateral IMPRESSION: Suspicious findings on the diagnostic mammogram as described. MRI correlation recommended for further evaluation. Enlarged left axillary lymph nodes. BI-RADS 0: INCOMPLETE - NEED ADDITIONAL IMAGING EVALUATION. RECOMMENDATION: MRI Recommended Reading Location: [id number]
== END | disposition home or self-care (01) ==
LOC: OPBI 12:56
PROVIDERS: PCP Family Medicine; Referring Provider Family Medicine; Visit Provider Family Medicine
DX: R92.8 Other abnormal and inconclusive findings on diagnostic imaging of breast (principal)
CPT/HCPCS: 76642; 77061; 77065; G0279

== ENCOUNTER → 2025-07-06 | Outpatient (CLI) | payer OTHER, SELFPAY ==
--- NOTE | 2025-07-06 10:59 | MRI_ITS ---
PROCEDURE: MRI/Breast Bilateral W/O and W
== END | disposition home or self-care (01) ==
LOC: MRI 10:53
PROVIDERS: PCP Family Medicine; Referring Provider Family Medicine; Visit Provider Family Medicine
DX: R92.8 Other abnormal and inconclusive findings on diagnostic imaging of breast (principal)
CPT/HCPCS: 77049; A9575; A4216; C8908